=== PATIENT | male | born 1960 | race Two or more races ===

== ENCOUNTER 2018-09-05 11:50 | Emergency (ER) | payer OTHER ==
[2018-09-05 11:59] VITALS: BP 126/78; PULSE 65; TEMP 98; BMI 30.7
[2018-09-05] MEDS ORDERED: KETOROLAC TROMETHAMINE 60 MG/2 ML VIAL ONE (12:28)
[2018-09-05] MEDS ORDERED: KETOROLAC TROMETHAMINE 60 MG/2 ML VIAL IM ONE (12:28)
--- NOTE | 2018-09-05 12:33 | PDOC ---
History of Present Illness - General Chief Complaint: Back Pain Stated Complaint: SEVERE BACK PAIN Time Seen by Provider: 09/05/18 12:04 History Source: Patient Exam Limitations: No Limitations - History of Present Illness Initial Comments: 09/05/18 13:09 Pt is a 58 y/o M with hx of chronic back pain and herniated discs presents to the ED for L lower back pain starting yesterday. Pt states he lifted two heavy bags yesterday and felt a twinge in his back. He states the pain got worse over the course of the day. He was taking flexeril at home with little relief. Denies fever, chills, fall, truama, dysuria, hematuria, bladder/bowel incontinence, saddle anesthesia. Past History - Travel Traveled outside of the country in the last 30 days: No Close contact w/someone who was outside of country & ill: No - Past Medical History Allergies/Adverse Reactions: Allergies Allergy/AdvReac Type Severity Reaction Status Date / Time No Known Allergies Allergy Verified 09/05/18 11:55 Home Medications: Ambulatory Orders Methylprednisolone [Medrol Dose Hermes] 4 mg PO ASDIR #21 tablet 09/05/18 COPD: No Other medical history: back pain - Immunization History Immunization Up to Date: Yes - Suicide/Smoking/Psychosocial Hx Smoking History: Never smoked Hx Alcohol Use: No Drug/Substance Use Hx: No Review of Systems - Review of Systems Able to Perform ROS?: Yes Comments:: 09/05/18 12:33 CONSTITUTIONAL: Absent: fever, chills, diaphoresis, generalized weakness, malaise, loss of appetite GASTROINTESTINAL: Absent: abdominal pain, abdominal distension, nausea, vomiting, diarrhea, constipation, melena, hematochezia GENITOURINARY: Absent: dysuria, frequency, urgency, hesitancy, hematuria, flank pain, genital pain MUSCULOSKELETAL: Present: low back pain Absent: arthralgia, joint swelling SKIN: Absent: rash, itching, pallor NEUROLOGIC: Absent: headache, focal weakness or paresthesias, dizziness, unsteady gait, seizure, mental status changes, bladder or bowel incontinence PSYCHIATRIC: Absent: anxiety, depression, suicidal or homicidal ideation, hallucinations. Is the patient limited Malian proficient: No *Physical Exam - Vital Signs Last Vital Signs Temp Pulse Resp BP Pulse Ox 98.0 F 65 18 126/78 98 09/05/18 11:56 09/05/18 11:56 09/05/18 11:56 09/05/18 11:56 09/05/18 11:56 - Physical Exam Comments: 09/05/18 12:35 GENERAL: Well developed, well nourished. Awake and alert. No acute distress. HEENT: Normocephalic, atraumatic. PERRLA, EOMI. No conjunctival pallor. Sclera are non- icteric. Moist mucous membranes. Oropharynx is clear. NECK: Supple. Full ROM. No JVD. Carotid pulses 2+ and symmetric, without bruits. No thyromegaly. No lymphadenopathy. CARDIOVASCULAR: Regular rate and rhythm. No murmurs, rubs, or gallops. Distal pulses are 2+ and symmetric. PULMONARY: No evidence of respiratory distress. Lungs clear to auscultation bilaterally. No wheezing, rales or rhonchi. ABDOMINAL: Soft. Non-tender. Non-distended. No rebound or guarding. No organomegaly. Normoactive bowel sounds. MUSCULOSKELETAL Normal range of motion at all joints. No bony deformities or tenderness. No CVA tenderness. EXTREMITIES: No cyanosis. No clubbing. No edema. No calf tenderness. SKIN: Warm and dry. Normal capillary refill. No rashes. No jaundice. NEUROLOGICAL: Alert, awake, appropriate. Cranial nerves 2-12 intact. No deficits to light touch and temperature in face, upper extremities and lower extremities. No motor deficits in the in face, upper extremities and lower extremities. Normoreflexic in the upper and lower extremities. Normal speech. Toes are down- going bilaterally. Gait is normal without ataxia. PSYCHIATRIC: Cooperative. Good eye contact. Appropriate mood and affect. Medical Decision Making - Medical Decision Making 09/05/18 12:36 Pt is a 58 y/o M with hx of chronic back pain and herniated discs presents to the ED for L lower back pain starting yesterday. -Pt with TTP of the L paraspinous muscles, L3-L5, with palpable knot consistent with muscle spasm. -No trauma, or fever. No saddle anesthesia or bladder/bowel incontinence. No CVA tenderness. -Pt is neurologically intact on exam with no focal findings. -Toradol given with relief of symptoms -DC home. Ortho follow up given for if symptoms do not resolve. -I discussed the physical exam findings, ancillary test results and final diagnoses with the patient. I answered all of the patient's questions. The patient was satisfied with the care received and felt comfortable with the discharge plan and treatment plan. The Patient agrees to follow up with the primary care physician/specialist within 24-72 hours. Return precautions were given. *DC/Admit/Observation/Transfer Diagnosis at time of Disposition: Low back pain Qualifiers: Chronicity: acute Back pain laterality: left Sciatica presence: without sciatica Qualified Code(s): M54.5 - Low back pain - Discharge Dispostion Disposition: HOME Condition at time of disposition: Stable Decision to Admit order: No - Referrals Referrals: Ruddy Sutton MD [Primary Care Provider] - Bill Miranda MD [Staff Physician] - - Patient Instructions Printed Discharge Instructions: DI for Low Back Pain Additional Instructions: You have low back pain due to a muscle spasm. Please take your celoxib and flexeril. Do not drive after taking this medication as it may make you sleepy. Take the steroids as prescribed. You may use warm compresses on your back to help with her symptoms. Please follow-up with your primary care doctor. If your symptoms do not resolve in 3-5 days, follow-up with orthopedics. A referral has been provided for you. Return to the emergency department if you have worsening back pain, bladder or bowel incontinence, numbness and tingling in her legs, changes in the way you walk, or any new or worsening symptoms. Tiene dolor lumbar debido a un espasmo muscular. Por favor tome mckeon celoxib y flexeril. No maneje despus de vanessa marcelino medicamento, ya que puede causarle sueo. [place] los esteroides segn lo prescrito. Puede usar compresas tibias en la espalda para ayudar con cony sntomas. Por favor jade un seguimiento con mckeon mdico de atencin primaria. Si cony sntomas no se resuelven en 3-5 smith, jade un seguimiento con ortopedia. Se jones proporcionado tory referencia para usted. Regrese a la oz de emergencias si tiene empeoramiento del dolor de espalda, incontinencia de la vejiga o el intestino, entumecimiento y hormigueo en las piernas, cambios en la forma en que camina, o cualquier sntoma nuevo o que empeora. Print Language: CZECH - Post Discharge Activity Forms/Work/School Notes: Back to Work
== END 2018-09-05 12:45 | disposition home or self-care (01) ==
LOC: JERFT 11:50
PROC: 3E0233Z Introduction of Anti-inflammatory into Muscle, Percutaneous Approach (ICD-10-PCS; principal; 2018-09-05)
DX: M54.5 Low back pain (principal)
CPT/HCPCS: 96372; 99281-25

== ENCOUNTER 2018-12-25 09:39 | Emergency (ER) | payer OTHER ==
[2018-12-25 09:45] VITALS: BP 126/77; PULSE 79; TEMP 97.3; BMI 30.7
[2018-12-25] MEDS ORDERED: KETOROLAC TROMETHAMINE 60 MG/2 ML VIAL IM ONE (10:39)
[2018-12-25] MEDS ORDERED: KETOROLAC TROMETHAMINE 60 MG/2 ML VIAL ONE (10:41)
--- NOTE | 2018-12-25 10:45 | PDOC ---
History of Present Illness - General Chief Complaint: Head/Neck problem Stated Complaint: NECK PAIN Time Seen by Provider: 12/25/18 10:17 History Source: Patient Exam Limitations: No Limitations - History of Present Illness Initial Comments: 12/25/18 10:42 Patient came for evaluation of left neck and shoulder tension and pain. States had onset of spasm approximately 3-4 days ago but has been hurting him for over a month. Has disability for 30 years for a low back strain and disc herniation but has no known cervical spine herniation or disc issue. Has been on chronic pain management and physical therapy for low back.and disc herniation Past History - Travel Traveled outside of the country in the last 30 days: No Close contact w/someone who was outside of country & ill: No - Past Medical History Allergies/Adverse Reactions: Allergies Allergy/AdvReac Type Severity Reaction Status Date / Time No Known Allergies Allergy Verified 12/25/18 09:45 Home Medications: Ambulatory Orders Cyclobenzaprine HCl 10 mg PO Q8H PRN #14 tablet 12/25/18 COPD: No Other medical history: herniated discs - Immunization History Immunization Up to Date: Yes - Suicide/Smoking/Psychosocial Hx Smoking History: Never smoked Hx Alcohol Use: No Drug/Substance Use Hx: No Review of Systems - Review of Systems Able to Perform ROS?: Yes Is the patient limited Honduran proficient: Yes Constitutional: Yes: Symptoms Reported, See HPI, Malaise. No: Fever HEENTM: Yes: See HPI. No: Symptoms Reported Musculoskeletal: Yes: Symptoms Reported, See HPI, Muscle Pain, Neck Pain Integumentary: No: Symptoms Reported All Other Systems: Reviewed and Negative *Physical Exam - Vital Signs Last Vital Signs Temp Pulse Resp BP Pulse Ox 97.3 F L 79 18 126/77 97 12/25/18 09:42 12/25/18 09:42 12/25/18 09:42 12/25/18 09:42 12/25/18 09:42 - Physical Exam General Appearance: Yes: Nourished, Appropriately Dressed, Apparent Distress, Mild Distress HEENT: positive: BRIAN, Normal ENT Inspection, TMs Normal, Pharynx Normal Neck: positive: Tender (with tense tight musculature to the paravertebral spinous muscles on the left side. Has no true bone tenderness crepitus or step- offs. Range of motion is intact but has pain flexing neck to the left. With point pressure can reproduce scalp and headache pain and left arm pain.), Supple Respiratory/Chest: positive: Lungs Clear, Normal Breath Sounds Gastrointestinal/Abdominal: positive: Soft. negative: Tender Musculoskeletal: positive: Normal Inspection, Muscle Spasm. negative: Vertebral Tenderness Extremity: positive: Normal Capillary Refill, Normal Inspection, Normal Range of Motion Integumentary: positive: Normal Color, Dry, Warm Neurologic: positive: global program manager II-XII NML intact, Fully Oriented, Alert, Normal Mood/ Affect, Normal Response, Motor Strength 5/5 Moderate Sedation - Procedure Monitoring Vital Signs: Procedure Monitoring Vital Signs Temperature 97.3 F L 12/25/18 09:42 Pulse Rate 79 12/25/18 09:42 Respiratory Rate 18 12/25/18 09:42 Blood Pressure 126/77 12/25/18 09:42 O2 Sat by Pulse Oximetry (%) 97 12/25/18 09:42 Progress Note - Progress Note Progress Note: Chronic neck pain, will re-prescribe Flexeril for antispasmodic purposes and patient already has meloxicam for anti-inflammatory. Will follow-up with Dr. Sutton for further treatment and therapy *DC/Admit/Observation/Transfer Diagnosis at time of Disposition: Strain of neck Qualifiers: Encounter type: initial encounter Qualified Code(s): S16.1XXA - Strain of muscle, fascia and tendon at neck level, initial encounter - Discharge Dispostion Disposition: HOME Condition at time of disposition: Stable Decision to Admit order: No - Prescriptions Prescriptions: Cyclobenzaprine HCl 10 mg PO Q8H PRN #14 tablet PRN Reason: spasm - Referrals - Patient Instructions Printed Discharge Instructions: DI for Chronic Neck Pain Additional Instructions: Rest, no heavy lifting or exercise until pain is resolved Hot soaks to neck and low back as often as possible/hot showers or Jacuzzis No massage or therapy until spasm is gone Continue Naprosyn 500 mg tablet, 1 tablet every 8 hours for the next 3 days then as needed for pain and swelling Cyclobenzaprine 1-10mg every 8 hours as needed for spasm If not significant improvement within 24 hours with medication and rest regime, followup with private physician for change in medications and /or therapy. - Post Discharge Activity
== END 2018-12-25 11:01 | disposition home or self-care (01) ==
LOC: JERFT 09:39
PROC: 3E0233Z Introduction of Anti-inflammatory into Muscle, Percutaneous Approach (ICD-10-PCS; principal; 2018-12-25)
DX: S16.1XXA Strain of muscle, fascia and tendon at neck level, initial encounter (principal); M62.838 Other muscle spasm; X58.XXXA Exposure to other specified factors, initial encounter; Y93.89 Activity, other specified; Y92.89 Other specified places as the place of occurrence of the external cause; Y99.8 Other external cause status
CPT/HCPCS: 96372; 99281-25

== ENCOUNTER 2019-01-14 17:14 | Emergency (ER) | payer OTHER ==
--- NOTE | 2019-01-14 17:22 | PDOC ---
Rapid Medical Evaluation Chief Complaint: Pain, Acute Time Seen by Provider: 01/14/19 17:21 Medical Evaluation: Allergies Allergy/AdvReac Type Severity Reaction Status Date / Time No Known Allergies Allergy Verified 12/25/18 09:45 01/14/19 17:21 I have performed a brief in-person evaluation of this patient. The patient presents with a chief complaint of:LBP x3 days no radiculopathy Pertinent physical exam findings:NAD, ambulates I have ordered the following:Nothing The patient will proceed to the ED for further evaluation. Discharge Disposition - Diagnosis Low back pain - Referrals - Patient Instructions - Post Discharge Activity
[2019-01-14 17:25] VITALS: BP 126/85; PULSE 75; TEMP 98.6; BMI 29.8
[2019-01-14] MEDS ORDERED: diazePAM 5 MG TABLET PO ONE (18:17)
[2019-01-14] MEDS ORDERED: LIDOCAINE 5% TOPICAL PATCH TP ONE (18:17)
[2019-01-14] MEDS ORDERED: KETOROLAC TROMETHAMINE 30 MG/1 ML VIAL IM ONE (18:17)
[2019-01-14] MEDS ORDERED: KETOROLAC TROMETHAMINE 30 MG/1 ML VIAL ONE (18:22)
[2019-01-14] MEDS ORDERED: LIDOCAINE 5% TOPICAL PATCH ONE (18:22)
[2019-01-14] MEDS ORDERED: diazePAM 5 MG TABLET ONE (18:23)
--- NOTE | 2019-01-14 18:41 | PDOC ---
History of Present Illness - General Chief Complaint: Pain, Acute Stated Complaint: LWR BACK PAIN Time Seen by Provider: 01/14/19 17:21 History Source: Patient Exam Limitations: No Limitations Past History - Past Medical History Allergies/Adverse Reactions: Allergies Allergy/AdvReac Type Severity Reaction Status Date / Time No Known Allergies Allergy Verified 01/14/19 17:21 Home Medications: Ambulatory Orders Cyclobenzaprine HCl 10 mg PO Q8H PRN #14 tablet 12/25/18 Diazepam [Valium] 5 mg PO Q8H PRN #12 tablet MDD 3 01/14/19 Diclofenac Sodium [Voltaren] 100 gm TP BID #1 gel..gram. 01/14/19 Lidocaine 5% Patch [Lidoderm -] 1 patch TP DAILY #30 patch 01/14/19 COPD: No Hypercholesterolemia: Yes - Immunization History Immunization Up to Date: Yes - Suicide/Smoking/Psychosocial Hx Smoking History: Never smoked Information on smoking cessation initiated: No Hx Alcohol Use: No Drug/Substance Use Hx: No *Physical Exam - Vital Signs Last Vital Signs Temp Pulse Resp BP Pulse Ox 98.6 F 75 16 126/85 100 01/14/19 17:22 01/14/19 17:22 01/14/19 17:22 01/14/19 17:22 01/14/19 17:22 - Physical Exam General Appearance: No: Apparent Distress Respiratory/Chest: positive: Lungs Clear, Normal Breath Sounds. negative: Respiratory Distress Cardiovascular: positive: Regular Rhythm, Regular Rate, S1, S2. negative: Murmur Gastrointestinal/Abdominal: positive: Normal Bowel Sounds, Soft. negative: Tender, Distended, Guarding, Rebound Musculoskeletal: positive: Vertebral Tenderness (along lumbar spine), Other ( pain with movement of spine) Integumentary: positive: Normal Color Neurologic: positive: pourer buggy ladle II-XII NML intact, Fully Oriented, Alert, Normal Mood/ Affect, Normal Response, Motor Strength 5/5, Other (normal gait) Moderate Sedation - Procedure Monitoring Vital Signs: Procedure Monitoring Vital Signs Temperature 98.6 F 01/14/19 17:22 Pulse Rate 75 01/14/19 17:22 Respiratory Rate 16 01/14/19 17:22 Blood Pressure 126/85 01/14/19 17:22 O2 Sat by Pulse Oximetry (%) 100 01/14/19 17:22 ED Treatment Course - Medications Given in the ED: ED Medications Discontinued Medications Generic Name Dose Route Start Last Admin Trade Name Corona PRN Reason Stop Dose Admin Diazepam 5 mg 01/14/19 18:17 01/14/19 18:28 Valium - PO 01/14/19 18:18 5 mg ONCE ONE Administration Ketorolac Tromethamine 30 mg 01/14/19 18:17 01/14/19 18:28 Toradol Injection - IM 01/14/19 18:18 30 mg ONCE ONE Administration Lidocaine 1 patch 01/14/19 18:17 01/14/19 18:28 Lidoderm Patch - TP 01/14/19 18:18 1 patch ONCE ONE Administration Medical Decision Making - Medical Decision Making 58 y/o M with hx of chronic LBP, lumbar herniated disc (since ), HLD presents with acute on chronic lower back pain. Mentions 3 days ago, he bent down and felt pain in lower back pain, which feels like his typical lower back pain. LBP radiates down both legs. Saw his PCP 4 days ago for his pain and was prescribed Nabumetone; is also taking Flexeril. However, does not feel either of those medications are helping with the pain. Has had PT in the past but does not feel like PT does much. Has not had any recent imaging of his spine done. Denies fever, sob, cp, abd pain, n/v, urinary complaints, bowel/bladder incontinence, saddle/groin paresthesia. Chronic LBP/sciatica Plan: Toradol IM, PO Valium, Lido patch, reassess 01/14/19 18:37 Patient feels a bit better after meds given Advised he needs further follow-up as outpatient Stable for dc 01/14/19 19:11 *DC/Admit/Observation/Transfer Diagnosis at time of Disposition: Low back pain Qualifiers: Chronicity: chronic Back pain laterality: midline Sciatica presence: with sciatica Sciatica laterality: sciatica laterality unspecified Qualified Code(s) : M54.40 - Lumbago with sciatica, unspecified side; G89.29 - Other chronic pain - Discharge Dispostion Disposition: HOME Condition at time of disposition: Stable Decision to Admit order: No - Prescriptions Prescriptions: Diazepam [Valium] 5 mg PO Q8H PRN #12 tablet MDD 3 PRN Reason: Muscle Spasms Diclofenac Sodium [Voltaren] 100 gm TP BID #1 gel..gram. Lidocaine 5% Patch [Lidoderm -] 1 patch TP DAILY #30 patch - Referrals Referrals: Ruddy Sutton MD [Primary Care Provider] - 2 Days - Patient Instructions Printed Discharge Instructions: DI for Low Back Pain Additional Instructions: Thank you for choosing [facility]. It was a pleasure taking care of you. You may take Motrin 600 mg every 6 hours by mouth as needed for mild to moderate pain. Take Motrin with food. Apply lidocaine patch to help with pain. Take Valium as needed for muscle spasms. This medication can also make you drowsy so please be cautious with driving or performing heavy physical work. Do not take the Flexeril while taking Valium Please continue physical therapy Recommend seeing a sign writer letterer or painter for further evaluation Return to the Emergency Department if your symptoms worsen or persist, are unable to walk, unable to control bowel or bladder movements, have numbness around groin or other concerning symptoms. - Post Discharge Activity
[2019-01-14] MEDS ORDERED: LIDOCAINE PATCH REMOVAL MC SCH (22:00)
== END 2019-01-14 19:21 | disposition home or self-care (01) ==
LOC: JERFT 17:14
PROC: 3E0233Z Introduction of Anti-inflammatory into Muscle, Percutaneous Approach (ICD-10-PCS; principal; 2019-01-14)
DX: M54.40 Lumbago with sciatica, unspecified side (principal)
CPT/HCPCS: 96372; 99281-25

== ENCOUNTER 2019-01-15 14:08 | Emergency (ER) | payer OTHER ==
[2019-01-15 14:19] VITALS: BP 121/76; PULSE 76; TEMP 98.1; BMI 28.8
[2019-01-15] MEDS ORDERED: KETOROLAC TROMETHAMINE 60 MG/2 ML VIAL IM ONE (15:04)
[2019-01-15] MEDS ORDERED: LIDOCAINE 5% TOPICAL PATCH TP ONE (15:05)
--- NOTE | 2019-01-15 15:06 | PDOC ---
History of Present Illness - General Chief Complaint: Back Pain Stated Complaint: BACK PAIN Time Seen by Provider: 01/15/19 14:28 History Source: Patient Exam Limitations: No Limitations Past History - Travel Traveled outside of the country in the last 30 days: No Close contact w/someone who was outside of country & ill: No - Past Medical History Allergies/Adverse Reactions: Allergies Allergy/AdvReac Type Severity Reaction Status Date / Time No Known Allergies Allergy Verified 01/15/19 14:18 Home Medications: Ambulatory Orders Cyclobenzaprine HCl 10 mg PO Q8H PRN #14 tablet 12/25/18 Diazepam [Valium] 5 mg PO Q8H PRN #12 tablet MDD 3 01/14/19 Diclofenac Sodium [Voltaren] 100 gm TP BID #1 gel..gram. 01/14/19 Lidocaine 5% Patch [Lidoderm -] 1 patch TP DAILY #30 patch 01/14/19 Diazepam [Valium] 2 mg PO BID PRN #7 tablet MDD 4 01/15/19 COPD: No Hypercholesterolemia: Yes - Immunization History Immunization Up to Date: Yes - Suicide/Smoking/Psychosocial Hx Smoking History: Never smoked Hx Alcohol Use: No Drug/Substance Use Hx: No Review of Systems - Review of Systems Able to Perform ROS?: Yes Comments:: 01/15/19 15:05 CONSTITUTIONAL: Absent: fever, chills, diaphoresis, generalized weakness, malaise, loss of appetite HEENT: Absent: rhinorrhea, nasal congestion, throat pain, throat swelling, difficulty swallowing, mouth swelling, ear pain, eye pain, visual Changes CARDIOVASCULAR: Absent: chest pain, loss of consciousness, palpitations, irregular heart rate, peripheral edema RESPIRATORY: Absent: cough, shortness of breath, dyspnea with exertion, orthopnea, wheezing, stridor, hemoptysis GASTROINTESTINAL: Absent: abdominal pain, abdominal distension, nausea, vomiting, diarrhea, constipation, melena, hematochezia GENITOURINARY: Absent: dysuria, frequency, urgency, hesitancy, hematuria, flank pain, genital pain MUSCULOSKELETAL: Absent: myalgia, arthralgia, joint swelling SKIN: Absent: rash, itching, pallor HEMATOLOGIC/IMMUNOLOGIC: Absent: easy bleeding, easy bruising, lymphadenopathy, frequent infections ENDOCRINE: Absent: unexplained weight gain, unexplained weight loss, heat intolerance, cold intolerance NEUROLOGIC: Absent: headache, focal weakness or paresthesias, dizziness, unsteady gait, seizure, mental status changes, bladder or bowel incontinence PSYCHIATRIC: Absent: anxiety, depression, suicidal or homicidal ideation, hallucinations. Is the patient limited Bahamian proficient: No *Physical Exam - Vital Signs Last Vital Signs Temp Pulse Resp BP Pulse Ox 98.1 F 76 18 121/76 98 01/15/19 14:18 01/15/19 14:18 01/15/19 14:18 01/15/19 14:18 01/15/19 14:18 - Physical Exam Comments: 01/15/19 15:05 GENERAL: Well developed, well nourished. Awake and alert. No acute distress. HEENT: Normocephalic, atraumatic. PERRLA, EOMI. No conjunctival pallor. Sclera are non- icteric. Moist mucous membranes. Oropharynx is clear. NECK: Supple. Full ROM. No JVD. Carotid pulses 2+ and symmetric, without bruits. No thyromegaly. No lymphadenopathy. CARDIOVASCULAR: Regular rate and rhythm. No murmurs, rubs, or gallops. Distal pulses are 2+ and symmetric. PULMONARY: No evidence of respiratory distress. Lungs clear to auscultation bilaterally. No wheezing, rales or rhonchi. ABDOMINAL: Soft. Non-tender. Non-distended. No rebound or guarding. No organomegaly. Normoactive bowel sounds. MUSCULOSKELETAL Normal range of motion at all joints. No bony deformities or tenderness. No CVA tenderness. EXTREMITIES: No cyanosis. No clubbing. No edema. No calf tenderness. SKIN: Warm and dry. Normal capillary refill. No rashes. No jaundice. NEUROLOGICAL: Alert, awake, appropriate. Cranial nerves 2-12 intact. No deficits to light touch and temperature in face, upper extremities and lower extremities. No motor deficits in the in face, upper extremities and lower extremities. Normoreflexic in the upper and lower extremities. Normal speech. Toes are down- going bilaterally. Gait is normal without ataxia. PSYCHIATRIC: Cooperative. Good eye contact. Appropriate mood and affect. Moderate Sedation - Procedure Monitoring Vital Signs: Procedure Monitoring Vital Signs Temperature 98.1 F 01/15/19 14:18 Pulse Rate 76 01/15/19 14:18 Respiratory Rate 18 01/15/19 14:18 Blood Pressure 121/76 01/15/19 14:18 O2 Sat by Pulse Oximetry (%) 98 01/15/19 14:18 *DC/Admit/Observation/Transfer Diagnosis at time of Disposition: Low back pain Qualifiers: Chronicity: acute Back pain laterality: left Sciatica presence: without sciatica Qualified Code(s): M54.5 - Low back pain - Discharge Dispostion Disposition: HOME Condition at time of disposition: Stable Decision to Admit order: No - Referrals Referrals: Jared Fox [Primary Care Provider] - Enmanuel Osei MD [Staff Physician] - - Patient Instructions Printed Discharge Instructions: DI for Low Back Pain Additional Instructions: You received another Toradol shot today for your back pain. The Valium prescription has been resent to your pharmacy. The pharmacist was able to fill it. Please take the medication as prescribed. do not drive or drink alcohol after taking this medication as it can make you sleepy. You may take Motrin 800 mg every 8 hours in addition to the Valium starting tomorrow. you may pick a lidocaine patch up [id number] to help with symptoms. You are referred to pain management. His name is Dr. Osei Return to the ER for any new or worsening symptoms. - Post Discharge Activity
[2019-01-15] MEDS ORDERED: LIDOCAINE 5% TOPICAL PATCH ONE (15:08)
[2019-01-15] MEDS ORDERED: KETOROLAC TROMETHAMINE 30 MG/1 ML VIAL ONE (15:08)
[2019-01-15] MEDS ORDERED: LIDOCAINE PATCH REMOVAL MC SCH (22:00)
== END 2019-01-15 15:32 | disposition home or self-care (01) ==
LOC: JERFT 14:08
PROC: 3E0233Z Introduction of Anti-inflammatory into Muscle, Percutaneous Approach (ICD-10-PCS; principal; 2019-01-15)
DX: M54.5 Low back pain (principal)
CPT/HCPCS: 96372; 99281-25

== ENCOUNTER 2022-12-30 04:28 | Day surgery (SDC) | payer OTHER ==
[2022-12-29 12:48] VITALS: BMI 31.6
[2022-12-30 13:27] VITALS: TEMP 97.3
[2022-12-30 14:29] VITALS: BP 110/71; PULSE 68; RESP 18
== END 2022-12-30 14:30 | disposition home or self-care (01) ==
LOC: JASU-ENDO 04:28
PROVIDERS: ATTEND Internal Medicine Gastroenterology
PROC: 0DBM8ZX Excision of Descending Colon, Via Natural or Artificial Opening Endoscopic, Diagnostic (ICD-10-PCS; 2022-12-30)
PROC: 0DBH8ZX Excision of Cecum, Via Natural or Artificial Opening Endoscopic, Diagnostic (ICD-10-PCS; principal; 2022-12-30 12:30)
DX: Z12.11 Encounter for screening for malignant neoplasm of colon (principal); Z80.0 Family history of malignant neoplasm of digestive organs; K64.8 Other hemorrhoids; D12.0 Benign neoplasm of cecum; D12.4 Benign neoplasm of descending colon
CPT/HCPCS: 88305-TC

== ENCOUNTER 2024-07-17 11:33 | Emergency (ER) | payer OTHER ==
[2024-07-17 11:51] VITALS: BP 143/87; PULSE 66; RESP 18; TEMP 97.7; BMI 30.2
[2024-07-17] MEDS ORDERED: CYCLOBENZAPRINE HCL 10 MG TABLET (FP) PO ONE (12:25)
[2024-07-17] MEDS ORDERED: CYCLOBENZAPRINE HCL 10 MG TABLET (FP) ONE (12:30)
[2024-07-17] MEDS ORDERED: KETOROLAC TROMETHAMINE 30 MG/1 ML VIAL ONE (12:30)
[2024-07-17] MEDS: KETOROLAC TROMETHAMINE 30 MG/1 ML VIAL IM ONE (12:45)
== END 2024-07-17 13:09 | disposition home or self-care (01) ==
LOC: JER 11:33 → JERFT 11:33
PROC: 3E0233Z Introduction of Anti-inflammatory into Muscle, Percutaneous Approach (ICD-10-PCS; principal; 2024-07-17)
DX: M54.2 Cervicalgia (principal); G89.29 Other chronic pain; M25.511 Pain in right shoulder; M25.512 Pain in left shoulder
CPT/HCPCS: 96372; 99284-25